=== PATIENT | female | born 1950 | race African-American/Black ===

== ENCOUNTER → 2018-05-29 12:14 | Outpatient (CLI) | payer OTHER | END | disposition home or self-care (01) | LOC: D.US 12:14 | DX: I65.23 Occlusion and stenosis of bilateral carotid arteries (principal) ==

== ENCOUNTER → 2019-05-28 12:29 | Outpatient (CLI) | payer MEDICARE, OTHER | END | disposition home or self-care (01) | LOC: D.US 05-21 13:00 | PROVIDERS: ATTEND Internal Medicine Cardiovascular Disease | DX: I65.23 Occlusion and stenosis of bilateral carotid arteries (principal) ==

== ENCOUNTER → 2019-10-01 13:34 | Outpatient (CLI) | payer MEDICARE, OTHER ==
[2019-10-02 10:10] LABS: IMMUNOGLOBULIN A 349 mg/dL (87-352); IMMUNOGLOBULIN G 1494 mg/dL (700-1600); IMMUNOGLOBULIN M 68 mg/dL (26-217)
[2019-10-04 07:13] LABS: IMMUNOGLOBULIN E 38 IU/mL (6-495)
== END | disposition home or self-care (01) ==
LOC: D.LAB 13:34 → D.CT 14:00 → D.LAB 14:15 → D.RT 14:30 → D.LAB 10-02 13:00
PROVIDERS: ATTEND Internal Medicine Pulmonary Disease
DX: R06.09 Other forms of dyspnea (principal); J32.9 Chronic sinusitis, unspecified

== ENCOUNTER → 2020-03-07 14:42 | Outpatient (CLI) | payer MEDICARE, OTHER | END | disposition home or self-care (01) | LOC: D.LABREF 14:42 | PROVIDERS: ATTEND Internal Medicine Pulmonary Disease | DX: R06.02 Shortness of breath (principal) ==

== ENCOUNTER → 2020-03-10 08:22 | Outpatient (CLI) | payer MEDICARE | END | disposition home or self-care (01) | LOC: D.RT 08:22 | PROVIDERS: ATTEND Internal Medicine Pulmonary Disease | DX: R06.09 Other forms of dyspnea (principal) ==

== ENCOUNTER → 2020-05-26 08:39 | Outpatient (CLI) | payer MEDICARE | END | disposition home or self-care (01) | LOC: D.US 08:39 | PROVIDERS: ATTEND Internal Medicine Cardiovascular Disease | DX: I65.29 Occlusion and stenosis of unspecified carotid artery (principal) ==

== ENCOUNTER → 2021-03-02 10:55 | Outpatient (CLI) | payer MEDICARE | END | disposition home or self-care (01) | LOC: D.LAB 10:55 | PROVIDERS: ATTEND Internal Medicine Pulmonary Disease | DX: J44.9 Chronic obstructive pulmonary disease, unspecified (principal); Z11.52 Encounter for screening for COVID-19 ==

== ENCOUNTER → 2021-03-05 10:08 | Outpatient (CLI) | payer MEDICARE | END | disposition home or self-care (01) | LOC: D.RT 10:00 | PROVIDERS: ATTEND Internal Medicine Pulmonary Disease | DX: J44.9 Chronic obstructive pulmonary disease, unspecified (principal) ==